=== PATIENT | male | born 1980 | race Caucasian/White ===

== ENCOUNTER 2019-03-20 19:40 | Emergency (ER) | payer SELFPAY ==
[~2019-03-20] VITALS: Ht 193 cm; Wt 90.7 kg
--- NOTE | 2019-03-20 20:05 | NUR ---
Patient is AOx4, speaking in complete sentences, speech is clear. Able to follow /comprehend directions. Gait is stable. No cardiovascular distress noted. Rate/rhythm regular. No CP. No respiratory distress noted. Respirations even , unlabored, symmetrical chest rise. No adventitious sounds noted. Chief complaint: Patient comes in c/o Left hand decrease ROM and states "paralyzed" for 2days, states he was homeless and slept on the left side. Pt denies pain, +radiculopathy radiating towards Left shoulder, -paresthesias, denies surgeries nor trauma to the site. Denies Fever/Chills. No recent travel. 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 -ETOH / -recreational drug use/ +1/2 pk of cigarettes per day. Continent of bowel and bladder function. SAFETY Patient in bed, bed in lowest position. Siderails up x 2. Call light within reach. Will continue to monitor accordingly MD at bedside for hx and physical
--- NOTE | 2019-03-20 20:40 | NUR ---
back from radiology via wheelchair accompanied by tech. Pt NAD, denies pain. Patient in bed, bed in lowest position. Siderails up x 2. Call light within reach. Will continue to monitor accordingly
--- NOTE | 2019-03-20 20:44 | NUR ---
HOMELESS PT WAIVER FORM SIGNED. PT HAS A PLACE TO STAY FOR TONIGHT. HOMNELESS DISCHARGE RESOURCES GIVEN STATES HE HAS HIS OWN ARRANGEMENT FOR TRANSPORTATION MD AT BEDSIDE FOR UPDATE RE RADIOLOGY RESULTS
[2019-03-20] MEDS ORDERED: HYDROCODONE/APAP 10-325 MG TABLET PO ONE (21:00)
[2019-03-20] MEDS ORDERED: HYDROCODONE/APAP 10-325 MG TABLET ONE (21:03)
[2019-03-20 21:06] VITALS: BP 122/80
--- NOTE | 2019-03-20 21:06 | NUR ---
Patient discharged to home in stable conditon. Written and verbal after care instructions given. Patient verbalizes understanding of instructions. PT AMBULATORY WITH STABLE GAIT. ALL BELONGINGS WITH PATIENT
== END 2019-03-20 21:00 | disposition home or self-care (01) ==
LOC: ER 19:42
DX: G56.32 Lesion of radial nerve, left upper limb (principal); F17.200 Nicotine dependence, unspecified, uncomplicated; Z59.0 Homelessness
CPT/HCPCS: A4663

== ENCOUNTER 2019-03-28 01:20 | Emergency (ER) | payer SELFPAY ==
--- NOTE | 2019-03-28 01:55 | NUR ---
CALLED PATIENT X3 NO ANSWER, WALKED OUTSIDE TO LOOK FOR PATIENT, NOT THERE.
--- NOTE | 2019-03-28 02:02 | NUR ---
Patient left without being seen by ER physician.
== END 2019-03-28 06:04 | disposition left against medical advice (07) ==
LOC: ER 01:21
DX: Z53.21 Procedure and treatment not carried out due to patient leaving prior to being seen by health care provider (principal)

== ENCOUNTER 2020-04-18 21:23 | Emergency (ER) | payer SELFPAY | END 2020-04-18 21:25 | disposition left against medical advice (07) | LOC: ER 21:25 | DX: Z75.3 Unavailability and inaccessibility of health-care facilities (principal) ==